=== PATIENT | female | born 1955 | race Caucasian/White ===

== ENCOUNTER → 2018-03-16 09:42 | Outpatient (CLI) | payer OTHER, SELFPAY ==
[2018-03-16 11:09] LABS: Alanine Aminotransferase 27 IU/L (9-52); Albumin 4.5 g/dL (3.5-5.0); Albumin Globulin Ratio 1.6 (1.0-2.8); Alkaline Phosphatase 51 U/L (38-126); Aspartate Aminotransferase 26 IU/L (14-36); BUN Creatinine Ratio 31.7 (6-22); Bilirubin Total 0.4 mg/dL (0.2-1.3); Blood Urea Nitrogen 19 mg/dL (7-17); Calcium 9.3 mg/dL (8.4-10.2); Carbon Dioxide 27 mmol/L (22-32); Chloride 105 mmol/L (98-107); Estimated Glomerular Filt Rate > 60.0 mL/min (>60); Globulin 2.8 g/dL (1.7-4.1); Glucose 92 mg/dL (80-110); HEMOLYSIS < 15 (0-50); Potassium 4.2 mmol/L (3.4-5.1); Sodium 142 mmol/L (137-145); Total Protein 7.3 g/dL (6.3-8.2)
== END ==
PROVIDERS: PCP Family Medicine; Visit Provider Family Medicine
DX: R51 Headache (principal)
CPT/HCPCS: 36415; 80053

== ENCOUNTER → 2019-01-03 10:45 | Outpatient (CLI) | payer OTHER, SELFPAY ==
--- NOTE | 2019-01-03 | DI.RAD.S_ITS ---
PROCEDURE: XR KNEE LT 3V INDICATIONS: Pain in left knee TECHNIQUE: 3 views of the knee were acquired. COMPARISON: None. FINDINGS: Suboptimal lateral view. Bones: No fractures or dislocations. No suspicious bony lesions. Mild joint degeneration Soft tissues: No joint effusion. No suspicious soft tissue calcifications. IMPRESSION: Mild left knee joint degeneration Dictated by: Chris Wells M.D. on 01/03/2019 at 14:48 Approved by: Chris Wells M.D. on 01/03/2019 at 14:49
== END ==
PROVIDERS: PCP Family Medicine; Visit Provider Family Medicine
DX: M25.562 Pain in left knee (principal); M17.12 Unilateral primary osteoarthritis, left knee
CPT/HCPCS: 73562

== ENCOUNTER 2020-08-20 11:15 | Outpatient (RCR) | payer OTHER, SELFPAY ==
--- NOTE | 2020-06-18 12:19 | PT.OIE ---
Current Diagnoses Pelvic muscle wasting (06/18/20) Other female genital prolapse (06/18/20) Visit Care Team Role Provider Type Blaze Garcia MD Primary Care Provider Non-Staff Specialty: Family Practice Address: [place], [address] Email: Other Providers Specialty: Address: Phone: Fax: Email: Kadi Bustillo CNM Attending Provider Non-Staff Referring Provider Specialty: WOOL HAT FORMING MACHINE TENDER Address: [address] [place], [place] [address], [address] Email: Physical Therapy Initial Evaluation PT-OP-A Visit Information Start: 06/18/20 08:57 Freq: Status: Active Protocol: Document 06/18/20 10:44 [facility] (Rec: 06/18/20 10:54 [facility] [id number]) Out-Patient Physical Therapy Visit Information Visit Information Visit Type Initial Evaluation Visit Start Time 10:45 Visit Stop Time 11:30 Total Visit Minutes 45 Visit Number 1 Evaluation Information Evaluation Date 06/18/20 PT-OP-B Current Condition Start: 06/18/20 10:44 Freq: Status: Active Protocol: Document 06/18/20 10:44 [facility] (Rec: 06/18/20 10:54 [facility] [id number]) Current Condition History of Current Condition Onset Date 6 months ago Current Complaints pelvic organ pressure and rectocele History of Current Condition Pt reports she felt like maybe she was having a bladder prolapse problem but with a scan her bowel is protruding into to her vaginal wall. About 6 months ago she felt some pressure in her pelvic floor. She can be constipated but goes every day. Sometimes she has to strain to have a bowel movement, a little less than 1/2 the time. 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 Jeanne stopped her exercise program about 6 months ago and this is when her symptoms developed. Treatment Goals Patient/Caregiver Goals Steffany's goals include improving her pelvic floor strength so that she can prevent further prolapse and working on reducing the symptoms from her prolapse Prior Functional Status Baseline Function- ADL's Independent Baseline Function- Mobility Independent Current Functional Impairments (Reported) Functional Limitations- Mobility/Gait increased c/o pelvic pressure with activities that require standing all day or after long walks. PT-OP-C Subjective Start: 06/18/20 08:57 Freq: Status: Active Protocol: Document 06/18/20 10:30 [facility] (Rec: 06/23/20 12:19 [facility] [email or web address]) OP-PT Pain Assessment Pain Assessment Grid Paper Pain Assessment Grid Completed Yes Location pelvic floor Pain Location Details pelvic floor Intensity 1 Scale Used Numeric (0 - 10) Description Pressure PT-OP-I Pelvic Floor Start: 06/18/20 08:57 Freq: Status: Active Protocol: Document 06/18/20 10:30 [facility] (Rec: 06/23/20 12:04 [facility] [email or web address]) Pelvic Floor Assessment Urine Pelvic Floor Surgery No Urinary Symptoms Falling Out Feeling/Heavy Other Urinary Symptoms after standing for long periods Bowel Other Bowel Symptoms rectocele Bowel Movement Frequency daily Pelvic Clock Pelvic Clock 12-3 Atrophy Pelvic Clock 3-6 Atrophy Pelvic Clock 6-9 Atrophy Pelvic Clock 9-12 Atrophy Prolapse Rectocele Grade 2 Contraction Ability Voluntary Contraction Weak Voluntary Relaxation Weak Manual Muscle Testing Left 3 Manual Muscle Testing Right 2 Manual Muscle Testing Anterior 2 Manual Muscle Testing Posterior 2 Muscle Endurance (Seconds) 5 PT-OP-J Posture/Palpation/Skin Start: 06/18/20 08:57 Freq: Status: Active Protocol: Document 06/18/20 10:30 [facility] (Rec: 06/23/20 12:04 [facility] [email or web address]) Palpation Assessment Location levator ani Palpation Location levator ani left side Palpation Findings Soft Tissue Tightness,Muscle Guarding Palpation Details left side of the levator ani guarded and tight PT-OP-M Strength Start: 06/18/20 08:57 Freq: Status: Active Protocol: Document 06/18/20 10:30 [facility] (Rec: 06/23/20 12:18 [facility] [email or web address]) Trunk Strength Trunk Manual Muscle Testing Core Stabilization Weakness of the lower transverse abominal musculature, difficulty recruiting the transverse abdominals without upper abdominal muscle substition PT-OP-Q Treatments Start: 06/18/20 08:57 Freq: Status: Active Protocol: Document 06/18/20 17:58 [facility] (Rec: 06/18/20 18:01 [facility] [id number]) Therapeutic Exercises Supine Exercises rollouts with theraband Supine Exercise Name rollouts with theraband Side bilateral Resistance level 2 theraband Reps/Minutes 3 x 10 reps pelvic floor long holds Supine Exercise Name pelvic floor long holds hold x 10 seconds and relax x 10 seconds Side bilateral Reps/Minutes 1-2 sets of 10 reps PT-OP-T Assessment and Plan Start: 06/18/20 08:57 Freq: Status: Active Protocol: Document 06/18/20 10:30 [facility] (Rec: 06/23/20 12:04 [facility] [email or web address]) Physical Therapy Assessment Rehab Potential Rehabilitation Potential Excellent Evaluation Complexity Number of Personal Factors/Comorbidities 0 Number of Body Systems Impaired 1-2 Clinical Presentation at Evaluation Stable Impairments Impairments Activity Tolerance,Soft Tissue Mobility,Strength Other Impairments rectocele with increase pelvic pressure Goals Weakness of the lower abdominal wall Impairment Weakness of the lower abdominal wall Despatch Clerk Goal (LTG) Steffany is able to tolerate lower abdominal stabilization exercises to improve support to her pelvis. She is able to facilitate a abdominal and pelvic floor contraction prior to lifting to decrease strain on her pelvic organs LTG Duration 8 weeks Two Impairment c/o increased pelvic pressure after standing for long durations pain 1/10 Despatch Clerk Goal (LTG) Steffany is able to increase the strength of her pelvic floor to reduce pelvic organ prolapse and pressure she feels with standing. She is able to continue her work and standing without symptoms of pelvic pressure or heaviness LTG Duration 8 weeks One Impairment Pelvic floor weakness with rectocele and pelvic pressure Short Term Goal (STG) Steffany is educated on pelvic floor facilitation and is able to sustain a pelvic floor contraction for 10 seconds in supine STG Duration 4 weeks Despatch Clerk Goal (LTG) Steffany is able to increase her pelvic floor strength to 3/5 or better for improved support of her pelvic organs LTG Duration 8 weeks Assessment Summary Assessment Steffany is a 65 year old female who presents to physical therapy today with symptoms of pelvic organ prolapse, specifically a rectocele. She notes that symptoms began approximately 6 months ago. Steffany had a exercise program she was doing but with the covid 19 pandemic she stopped this program and felt she started getting weaker. She then started feeling symptoms of pelvic pressure. 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 Her symptoms of pelvic pressure are worse after a long day of being on her feet or walking. With examination today there is a grade 2-3 rectocele felt. She is weak in all aspects of the pelvic clock with MMT of 2/5 anterior, right lateral wall, and posterior loomis. She tests 3/5 MMT on the left lateral wall and there is guarding present on the left. Steffany demonstrates difficulty with sustaining a pelvic floor contraction. She presents with general core weakness. Treatment will include a pelvic floor stabilization program including endurance training of the pelvic floor. EMG biofeedback will be used for improved awareness of the pelvic floor muscles. Treatment will also include lower abdominal strengthening and education on positions that can decompress her pelvis . Physical Therapy Plan Frequency and Duration Frequency of Treatment 1x/Week Duration of Treatment 8 Plan of Care Start Date 06/18/20 Plan of Care End Date 08/13/20 Therapeutic Interventions Therapeutic Interventions Home Exercise Program,Manual Therapy,Neuromuscular Re- education,Patient/Caregiver Education,Self-Care/Home Management,Soft Tissue Mobilization,Therapeutic Exercises Modalities Biofeedback Next Visit Focus/Plan Next Note Type Treatment Note Next Visit Plan Begin EMG biofeedback for neuro awareness of pelvic floor contraction, endurance training for the pelvic floo, begin transverse abdominal stabilization exercises.
--- NOTE | 2020-06-18 12:20 | PT.OPPOC ---
Physical, Occupational & Speech Therapy At [facility] Current Diagnoses Pelvic muscle wasting (06/18/20) Other female genital prolapse (06/18/20) Visit Care Team Role Provider Type Blaze Garcia MD Primary Care Provider Non-Staff Specialty: Family Practice Address: [place], [address] Email: Other Providers Specialty: Address: Phone: Fax: Email: Kadi Bustillo CNM Attending Provider Non-Staff Referring Provider Specialty: SOFTWARE DEVELOPMENT ADVISOR Address: [address] [place] [address], [id number] Email: Plan Of Care PT-OP-T Assessment and Plan Start: 06/18/20 08:57 Freq: Status: Active Protocol: Document 06/18/20 10:30 [facility] (Rec: 06/23/20 12:04 [facility] [email or web address]) Physical Therapy Assessment Rehab Potential Rehabilitation Potential Excellent Evaluation Complexity Number of Personal Factors/Comorbidities 0 Number of Body Systems Impaired 1-2 Clinical Presentation at Evaluation Stable Impairments Impairments Activity Tolerance,Soft Tissue Mobility,Strength Other Impairments rectocele with increase pelvic pressure Goals Weakness of the lower abdominal wall Impairment Weakness of the lower abdominal wall Penitentiary Goal (LTG) Steffany is able to tolerate lower abdominal stabilization exercises to improve support to her pelvis. She is able to facilitate a abdominal and pelvic floor contraction prior to lifting to decrease strain on her pelvic organs LTG Duration 8 weeks Two Impairment c/o increased pelvic pressure after standing for long durations pain 1/10 Penitentiary Goal (LTG) Steffany is able to increase the strength of her pelvic floor to reduce pelvic organ prolapse and pressure she feels with standing. She is able to continue her work and standing without symptoms of pelvic pressure or heaviness LTG Duration 8 weeks One Impairment Pelvic floor weakness with rectocele and pelvic pressure Short Term Goal (STG) Steffany is educated on pelvic floor facilitation and is able to sustain a pelvic floor contraction for 10 seconds in supine STG Duration 4 weeks Purchasing Administrator Goal (LTG) Steffany is able to increase her pelvic floor strength to 3/5 or better for improved support of her pelvic organs LTG Duration 8 weeks Assessment Summary Assessment Steffany is a 65 year old female who presents to physical therapy today with symptoms of pelvic organ prolapse, specifically a rectocele. She notes that symptoms began approximately 6 months ago. Steffany had a exercise program she was doing but with the covid 19 pandemic she stopped this program and felt she started getting weaker. She then started feeling symptoms of pelvic pressure. 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 Her symptoms of pelvic pressure are worse after a long day of being on her feet or walking. With examination today there is a grade 2-3 rectocele felt. She is weak in all aspects of the pelvic clock with MMT of 2/5 anterior, right lateral wall, and posterior loomis. She tests 3/5 MMT on the left lateral wall and there is guarding present on the left. Steffany demonstrates difficulty with sustaining a pelvic floor contraction. She presents with general core weakness. Treatment will include a pelvic floor stabilization program including endurance training of the pelvic floor. EMG biofeedback will be used for improved awareness of the pelvic floor muscles. Treatment will also include lower abdominal strengthening and education on positions that can decompress her pelvis . Physical Therapy Plan Frequency and Duration Frequency of Treatment 1x/Week Duration of Treatment 8 Plan of Care Start Date 06/18/20 Plan of Care End Date 08/13/20 Therapeutic Interventions Therapeutic Interventions Home Exercise Program,Manual Therapy,Neuromuscular Re- education,Patient/Caregiver Education,Self-Care/Home Management,Soft Tissue Mobilization,Therapeutic Exercises Modalities Biofeedback Next Visit Focus/Plan Next Note Type Treatment Note Next Visit Plan Begin EMG biofeedback for neuro awareness of pelvic floor contraction, endurance training for the pelvic floor, begin transverse abdominal stabilization exercises. Plan of Care Dates Plan of Care Start Date 06/18/20 Plan of Care End Date 08/13/20 Electronically Signed by: Barbara Yousif, PT 06/23/20 [id number] Please Sign and Return: I have reviewed this Plan of Care and certify that the skilled therapy services above are required to meet the patient?s needs. Physician Signature Date Printed Name and Credentials Clinical Instructor Signature Printed Name and Credentials
--- NOTE | 2020-06-26 14:29 | PT.OTN ---
Current Diagnoses Pelvic muscle wasting (06/26/20) Other female genital prolapse (06/26/20) Physical Therapy Treatment Note PT-OP-A Visit Information Start: 06/18/20 08:57 Freq: Status: Active Protocol: Document 06/26/20 10:31 [facility] (Rec: 06/26/20 10:56 [facility] [id number]) Out-Patient Physical Therapy Visit Information Visit Information Visit Type Treatment Note Visit Start Time 10:50 Visit Stop Time 11:15 Total Visit Minutes 25 Visit Number 2 PT-OP-B Current Condition Start: 06/18/20 10:44 Freq: Status: Active Protocol: Document 06/18/20 10:44 [facility] (Rec: 06/18/20 10:54 [facility] [id number]) Current Condition History of Current Condition Onset Date 6 months ago Current Complaints pelvic organ pressure and rectocele History of Current Condition Pt reports she felt like maybe she was having a bladder prolapse problem but with a scan her bowel is protruding into to her vaginal wall. About 6 months ago she felt some pressure in her pelvic floor. She can be constipated but goes every day. Sometimes she has to strain to have a bowel movement, a little less than 1/2 the time. 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 Jeanne stopped her exercise program about 6 months ago and this is when her symptoms developed. Treatment Goals Patient/Caregiver Goals Steffany's goals include improving her pelvic josh strength so that she can prevent further prolapse and working on reducing the symptoms from her prolapse Prior Functional Status Baseline Function- ADL's Independent Baseline Function- Mobility Independent Current Functional Impairments (Reported) Functional Limitations- Mobility/Gait increased c/o pelvic pressure with activities that require standing all day or after long walks. PT-OP-C Subjective Start: 06/18/20 08:57 Freq: Status: Active Protocol: Document 06/26/20 10:31 [facility] (Rec: 06/26/20 10:56 [facility] [id number]) OP-PT Subjective Patient Comments Patient Comments [place]. She has been working on her exercises at home. Patient Reported Progress Same PT-OP-I Pelvic Floor Start: 06/18/20 08:57 Freq: Status: Active Protocol: Document 06/18/20 10:30 [facility] (Rec: 06/23/20 12:04 [facility] [email or web address]) Pelvic Floor Assessment Urine Pelvic Floor Surgery No Urinary Symptoms Falling Out Feeling/Heavy Other Urinary Symptoms after standing for long periods Bowel Other Bowel Symptoms rectocele Bowel Movement Frequency daily Pelvic Clock Pelvic Clock 12-3 Atrophy Pelvic Clock 3-6 Atrophy Pelvic Clock 6-9 Atrophy Pelvic Clock 9-12 Atrophy Prolapse Rectocele Grade 2 Contraction Ability Voluntary Contraction Weak Voluntary Relaxation Weak Manual Muscle Testing Left 3 Manual Muscle Testing Right 2 Manual Muscle Testing Anterior 2 Manual Muscle Testing Posterior 2 Muscle Endurance (Seconds) 5 PT-OP-J Posture/Palpation/Skin Start: 06/18/20 08:57 Freq: Status: Active Protocol: Document 06/18/20 10:30 [facility] (Rec: 06/23/20 12:04 [facility] [email or web address]) Palpation Assessment Location levator ani Palpation Location levator ani left side Palpation Findings Soft Tissue Tightness,Muscle Guarding Palpation Details left side of the levator ani guarded and tight PT-OP-M Strength Start: 06/18/20 08:57 Freq: Status: Active Protocol: Document 06/18/20 10:30 [facility] (Rec: 06/23/20 12:18 [facility] [email or web address]) Trunk Strength Trunk Manual Muscle Testing Core Stabilization Weakness of the lower transverse abominal musculature, difficulty recruiting the transverse abdominals without upper abdominal muscle substition PT-OP-Q Treatments Start: 06/18/20 08:57 Freq: Status: Active Protocol: Document 06/26/20 14:23 [facility] (Rec: 06/26/20 14:28 [facility] [email or web address]) Neuro Re-Education Treatment Other Activities EMG biofeedback/Neuro re-education Details EMG biofeedback and Neuro re- education for the pelvic floor Comments EMG biofeedback was used today to assist with neuro re- education of the pelvic floor. Steffany was educated in both long holds and quick flicks of the pelvic floor as well as resting tone assessment. Her average wasd 11.5 and max wasd 22.4 Self-Care/Home Management Treatment Education Patient Education Home Exercise Program Other Education elevating the pelvis for decompression PT-OP-T Assessment and Plan Start: 06/18/20 08:57 Freq: Status: Active Protocol: Document 06/26/20 14:23 [facility] (Rec: 06/26/20 14:28 [facility] [email or web address]) Physical Therapy Assessment Assessment Summary Assessment Treatment was [place]. We started EMG biofeedback today for long holds and quick contractions of the pelvic floor. Steffany tolerated this well. She may be a candidate as well for NMES for improved sensation of the pelvic floor. We also reviewed elevating her pelvis for decreased compression to the pelvic organs Physical Therapy Plan Frequency and Duration Frequency of Treatment 1x/Week Duration of Treatment 8 Plan of Care Start Date 06/18/20 Plan of Care End Date 08/13/20 Therapeutic Interventions Therapeutic Interventions Home Exercise Program,Manual Therapy,Neuromuscular Re- education,Patient/Caregiver Education,Self-Care/Home Management,Soft Tissue Mobilization,Therapeutic Exercises Modalities Biofeedback Next Visit Focus/Plan Next Note Type Treatment Note Next Visit Plan progress pelvic floor strengthening, begin lower abdominal stabilization and visceral release over the left side abdominal wall, descending colon, postural education and foam roll
--- NOTE | 2020-07-02 18:07 | PT.OTN ---
Current Diagnoses Pelvic muscle wasting (07/02/20) Other female genital prolapse (07/02/20) Physical Therapy Treatment Note PT-OP-A Visit Information Start: 06/18/20 08:57 Freq: Status: Active Protocol: Document 07/02/20 17:58 [facility] (Rec: 07/02/20 18:07 [facility] [id number]) Out-Patient Physical Therapy Visit Information Visit Information Visit Type Treatment Note Visit Start Time 10:40 Visit Stop Time 11:20 Total Visit Minutes 40 Visit Number 3 PT-OP-B Current Condition Start: 06/18/20 10:44 Freq: Status: Active Protocol: Document 06/18/20 10:44 [facility] (Rec: 06/18/20 10:54 [facility] [id number]) Current Condition History of Current Condition Onset Date 6 months ago Current Complaints pelvic organ pressure and rectocele History of Current Condition Pt reports she felt like maybe she was having a bladder prolapse problem but with a scan her bowel is protruding into to her vaginal wall. About 6 months ago she felt some pressure in her pelvic floor. She can be constipated but goes every day. Sometimes she has to strain to have a bowel movement, a little less than 1/2 the time. 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 Jeanne stopped her exercise program about 6 months ago and this is when her symptoms developed. Treatment Goals Patient/Caregiver Goals Steffany's goals include improving her pelvic josh strength so that she can prevent further prolapse and working on reducing the symptoms from her prolapse Prior Functional Status Baseline Function- ADL's Independent Baseline Function- Mobility Independent Current Functional Impairments (Reported) Functional Limitations- Mobility/Gait increased c/o pelvic pressure with activities that require standing all day or after long walks. PT-OP-C Subjective Start: 06/18/20 08:57 Freq: Status: Active Protocol: Document 07/02/20 17:58 [facility] (Rec: 07/02/20 18:07 [facility] [id number]) OP-PT Subjective Patient Comments Patient Comments Pt reports she has been working on her exercises at home. She can tell by the end of the day she has pressure from the rectal prolapse. PT-OP-I Pelvic Floor Start: 06/18/20 08:57 Freq: Status: Active Protocol: Document 06/18/20 10:30 [facility] (Rec: 06/23/20 12:04 [facility] [email or web address]) Pelvic Floor Assessment Urine Pelvic Floor Surgery No Urinary Symptoms Falling Out Feeling/Heavy Other Urinary Symptoms after standing for long periods Bowel Other Bowel Symptoms rectocele Bowel Movement Frequency daily Pelvic Clock Pelvic Clock 12-3 Atrophy Pelvic Clock 3-6 Atrophy Pelvic Clock 6-9 Atrophy Pelvic Clock 9-12 Atrophy Prolapse Rectocele Grade 2 Contraction Ability Voluntary Contraction Weak Voluntary Relaxation Weak Manual Muscle Testing Left 3 Manual Muscle Testing Right 2 Manual Muscle Testing Anterior 2 Manual Muscle Testing Posterior 2 Muscle Endurance (Seconds) 5 PT-OP-J Posture/Palpation/Skin Start: 06/18/20 08:57 Freq: Status: Active Protocol: Document 06/18/20 10:30 [facility] (Rec: 06/23/20 12:04 [facility] [email or web address]) Palpation Assessment Location levator ani Palpation Location levator ani left side Palpation Findings Soft Tissue Tightness,Muscle Guarding Palpation Details left side of the levator ani guarded and tight PT-OP-M Strength Start: 06/18/20 08:57 Freq: Status: Active Protocol: Document 06/18/20 10:30 [facility] (Rec: 06/23/20 12:18 [facility] [email or web address]) Trunk Strength Trunk Manual Muscle Testing Core Stabilization Weakness of the lower transverse abominal musculature, difficulty recruiting the transverse abdominals without upper abdominal muscle substition PT-OP-Q Treatments Start: 06/18/20 08:57 Freq: Status: Active Protocol: Document 07/02/20 17:58 [facility] (Rec: 07/02/20 18:07 [facility] [id number]) Therapeutic Exercises Supine Exercises templates for coordination and eccentric control Supine Exercise Name teplates for coordianation and eccentric control pelvis elevated with legs up the wall Supine Exercise Name pelvic elevated with legs up the wall Comments to do at the end of hte day when having pelvic pressure ball squeeze with pelvic floor contractions Reps/Minutes x 10 reps quick pelvic floor contactions Supine Exercise Name quick pelvic floor contractions Reps/Minutes 2 seconds on 2 seconds off x 10 reps pelvic floor long holds Supine Exercise Name pelvic floor long holds hold x 10 seconds and relax x 10 seconds Side bilateral Reps/Minutes 1-2 sets of 10 reps Sidelying Exercises clam shells Reps/Minutes x 10 reps PT-OP-T Assessment and Plan Start: 11/03/20 08:57 Freq: Status: Active Protocol: Document 07/02/20 17:58 [facility] (Rec: 07/02/20 18:07 [facility] [id number]) Physical Therapy Assessment Assessment Summary Assessment 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 We talked about going through all her mat exercises and making sure she isn't bearning down causing downward pressure with any of them. She still has difficulty with endurance holds. I added in ball squeeze with pelvic floor contraction to help with improved recruitment of the pelvic floor Physical Therapy Plan Frequency and Duration Frequency of Treatment 1x/Week Duration of Treatment 8 Plan of Care Start Date 06/18/20 Plan of Care End Date 08/13/20 Next Visit Focus/Plan Next Note Type Treatment Note Next Visit Plan review pilates exercises, lower abdominal stabilization , pelvic floor endurance training
--- NOTE | 2020-07-18 10:57 | PT.OTN ---
Current Diagnoses Pelvic muscle wasting (07/17/20) Other female genital prolapse (07/17/20) Physical Therapy Treatment Note PT-OP-A Visit Information Start: 06/18/20 08:57 Freq: Status: Active Protocol: Document 07/17/20 10:40 [facility] (Rec: 07/17/20 10:48 [facility] [id number]) Out-Patient Physical Therapy Visit Information Visit Information Visit Type Treatment Note Visit Start Time 10:40 Visit Stop Time 11:20 Total Visit Minutes 40 Visit Number 4 PT-OP-B Current Condition Start: 06/18/20 10:44 Freq: Status: Active Protocol: Document 06/18/20 10:44 [facility] (Rec: 06/18/20 10:54 [facility] [id number]) Current Condition History of Current Condition Onset Date 6 months ago Current Complaints pelvic organ pressure and rectocele History of Current Condition Pt reports she felt like maybe she was having a bladder prolapse problem but with a scan her bowel is protruding into to her vaginal wall. About 6 months ago she felt some pressure in her pelvic floor. She can be constipated but goes every day. Sometimes she has to strain to have a bowel movement, a little less than 1/2 the time. 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 Jeanne stopped her exercise program about 6 months ago and this is when her symptoms developed. Treatment Goals Patient/Caregiver Goals Steffany's goals include improving her pelvic josh strength so that she can prevent further prolapse and working on reducing the symptoms from her prolapse Prior Functional Status Baseline Function- ADL's Independent Baseline Function- Mobility Independent Current Functional Impairments (Reported) Functional Limitations- Mobility/Gait increased c/o pelvic pressure with activities that require standing all day or after long walks. PT-OP-C Subjective Start: 06/18/20 08:57 Freq: Status: Active Protocol: Document 07/17/20 10:40 [facility] (Rec: 07/17/20 10:48 [facility] [id number]) OP-PT Subjective Patient Comments Patient Comments Prolapse symptoms depend on the day. Trying to do her exercises. PT-OP-I Pelvic Floor Start: 06/18/20 08:57 Freq: Status: Active Protocol: Document 06/18/20 10:30 [facility] (Rec: 06/23/20 12:04 [facility] [email or web address]) Pelvic Floor Assessment Urine Pelvic Floor Surgery No Urinary Symptoms Falling Out Feeling/Heavy Other Urinary Symptoms after standing for long periods Bowel Other Bowel Symptoms rectocele Bowel Movement Frequency daily Pelvic Clock Pelvic Clock 12-3 Atrophy Pelvic Clock 3-6 Atrophy Pelvic Clock 6-9 Atrophy Pelvic Clock 9-12 Atrophy Prolapse Rectocele Grade 2 Contraction Ability Voluntary Contraction Weak Voluntary Relaxation Weak Manual Muscle Testing Left 3 Manual Muscle Testing Right 2 Manual Muscle Testing Anterior 2 Manual Muscle Testing Posterior 2 Muscle Endurance (Seconds) 5 PT-OP-J Posture/Palpation/Skin Start: 06/18/20 08:57 Freq: Status: Active Protocol: Document 06/18/20 10:30 [facility] (Rec: 06/23/20 12:04 [facility] [email or web address]) Palpation Assessment Location levator ani Palpation Location levator ani left side Palpation Findings Soft Tissue Tightness,Muscle Guarding Palpation Details left side of the levator ani guarded and tight PT-OP-M Strength Start: 06/18/20 08:57 Freq: Status: Active Protocol: Document 06/18/20 10:30 [facility] (Rec: 06/23/20 12:18 [facility] [email or web address]) Trunk Strength Trunk Manual Muscle Testing Core Stabilization Weakness of the lower transverse abominal musculature, difficulty recruiting the transverse abdominals without upper abdominal muscle substition PT-OP-Q Treatments Start: 06/18/20 08:57 Freq: Status: Active Protocol: Document 07/17/20 10:30 [facility] (Rec: 07/18/20 10:56 [facility] [id number]) Therapeutic Exercises Supine Exercises templates for coordination and eccentric control Supine Exercise Name templates for coordianation and eccentric control Comments working on coordination of the pelvic floor quick pelvic floor contactions Supine Exercise Name quick pelvic floor contractions Reps/Minutes 2 seconds on 2 seconds off x 10 reps pelvic floor long holds Supine Exercise Name pelvic floor long holds hold x 10 seconds and relax x 10 seconds Side bilateral Reps/Minutes 1-2 sets of 10 reps Self-Care/Home Management Treatment Education Patient Education Home Exercise Program Other Education discussed pressure systems for when Steffany is doing pilates to avoid downward pressure on the pelvic floor. PT-OP-T Assessment and Plan Start: 06/18/20 08:57 Freq: Status: Active Protocol: Document 07/17/20 10:30 [facility] (Rec: 07/18/20 10:56 [facility] [id number]) Physical Therapy Assessment Assessment Summary Assessment average tone on EMG biofeedback today is 18.1 uv with max of 30.7 uv. This is good progress as compared to last visit. Steffany is having a difficult time finding time for her exercises. She also has a elevated resting tone but notes she is told often with massages that she tends to hold tension and it is difficult for her to relax. Physical Therapy Plan Frequency and Duration Frequency of Treatment 1x/Week Duration of Treatment 8 Plan of Care Start Date 06/18/20 Plan of Care End Date 08/13/20 Therapeutic Interventions Therapeutic Interventions Home Exercise Program,Manual Therapy,Neuromuscular Re- education,Patient/Caregiver Education,Self-Care/Home Management,Soft Tissue Mobilization,Therapeutic Exercises Modalities Biofeedback Next Visit Focus/Plan Next Note Type Treatment Note Next Visit Plan continue progressing pelvic floor strength, review mechanics with pilates exercises.
--- NOTE | 2020-08-20 17:35 | PT.OTN ---
Current Diagnoses Pelvic muscle wasting (08/20/20) Other female genital prolapse (08/20/20) Physical Therapy Treatment Note PT-OP-A Visit Information Start: 06/18/20 08:57 Freq: Status: Active Protocol: Document 08/20/20 11:25 [facility] (Rec: 08/20/20 11:31 [facility] [id number]) Out-Patient Physical Therapy Visit Information Visit Information Visit Type Treatment Note Visit Start Time 11:20 Visit Stop Time 11:45 Total Visit Minutes 25 Visit Number 5 PT-OP-B Current Condition Start: 06/18/20 10:44 Freq: Status: Active Protocol: Document 06/18/20 10:44 [facility] (Rec: 06/18/20 10:54 [facility] [id number]) Current Condition History of Current Condition Onset Date 6 months ago Current Complaints pelvic organ pressure and rectocele History of Current Condition Pt reports she felt like maybe she was having a bladder prolapse problem but with a scan her bowel is protruding into to her vaginal wall. About 6 months ago she felt some pressure in her pelvic floor. She can be constipated but goes every day. Sometimes she has to strain to have a bowel movement, a little less than 1/2 the time. 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 Jeanne stopped her exercise program about 6 months ago and this is when her symptoms developed. Treatment Goals Patient/Caregiver Goals Steffany's goals include improving her pelvic josh strength so that she can prevent further prolapse and working on reducing the symptoms from her prolapse Prior Functional Status Baseline Function- ADL's Independent Baseline Function- Mobility Independent Current Functional Impairments (Reported) Functional Limitations- Mobility/Gait increased c/o pelvic pressure with activities that require standing all day or after long walks. PT-OP-C Subjective Start: 06/18/20 08:57 Freq: Status: Active Protocol: Document 08/20/20 11:25 [facility] (Rec: 08/20/20 11:31 [facility] [id number]) OP-PT Subjective Patient Comments Patient Comments She notes she doesnt feel like her prolase is as much as it used to be. If she does feel it that is when she is on her feet all day. PT-OP-I Pelvic Floor Start: 06/18/20 08:57 Freq: Status: Active Protocol: Document 06/18/20 10:30 [facility] (Rec: 06/23/20 12:04 [facility] [email or web address]) Pelvic Floor Assessment Urine Pelvic Floor Surgery No Urinary Symptoms Falling Out Feeling/Heavy Other Urinary Symptoms after standing for long periods Bowel Other Bowel Symptoms rectocele Bowel Movement Frequency daily Pelvic Clock Pelvic Clock 12-3 Atrophy Pelvic Clock 3-6 Atrophy Pelvic Clock 6-9 Atrophy Pelvic Clock 9-12 Atrophy Prolapse Rectocele Grade 2 Contraction Ability Voluntary Contraction Weak Voluntary Relaxation Weak Manual Muscle Testing Left 3 Manual Muscle Testing Right 2 Manual Muscle Testing Anterior 2 Manual Muscle Testing Posterior 2 Muscle Endurance (Seconds) 5 PT-OP-J Posture/Palpation/Skin Start: 06/18/20 08:57 Freq: Status: Active Protocol: Document 06/18/20 10:30 [facility] (Rec: 06/23/20 12:04 [facility] [email or web address]) Palpation Assessment Location levator ani Palpation Location levator ani left side Palpation Findings Soft Tissue Tightness,Muscle Guarding Palpation Details left side of the levator ani guarded and tight PT-OP-M Strength Start: 06/18/20 08:57 Freq: Status: Active Protocol: Document 06/18/20 10:30 [facility] (Rec: 06/23/20 12:18 [facility] [email or web address]) Trunk Strength Trunk Manual Muscle Testing Core Stabilization Weakness of the lower transverse abominal musculature, difficulty recruiting the transverse abdominals without upper abdominal muscle substition PT-OP-Q Treatments Start: 06/18/20 08:57 Freq: Status: Active Protocol: Document 08/20/20 17:34 [facility] (Rec: 08/20/20 17:35 [facility] [email or web address]) Therapeutic Exercises Supine Exercises templates for coordination and eccentric control Supine Exercise Name templates for coordianation and eccentric control Comments working on coordination of the pelvic floor quick pelvic floor contactions Supine Exercise Name quick pelvic floor contractions Reps/Minutes 2 seconds on 2 seconds off x 10 reps pelvic floor long holds Supine Exercise Name pelvic floor long holds hold x 10 seconds and relax x 10 seconds Side bilateral Reps/Minutes 1-2 sets of 10 reps PT-OP-T Assessment and Plan Start: 06/18/20 08:57 Freq: Status: Active Protocol: Document 08/20/20 17:33 [facility] (Rec: 08/20/20 17:34 [facility] [id number]) Physical Therapy Assessment Progress Towards Goals Progress Towards Goals Progressing Toward Goals Assessment Summary Assessment Steffany has made good progress overall with her strengthening . She notes overall decrased pressure from the prolapse and feels independent with her HEP. She will be discharged at this time to a independent [facility] Physical Therapy Plan Discharge Physical Therapy Discharge Reasons No Longer Attending PT
--- NOTE | 2020-11-27 10:14 | PT.OPDS ---
Current Diagnoses Pelvic muscle wasting (08/20/20) Other female genital prolapse (08/20/20) Visit Care Team Role Provider Type Blaze Garcia MD Primary Care Provider Non-Staff Specialty: Family Practice Address: [place], [address] Email: Other Providers Specialty: Address: Phone: Fax: Email: Kadi Bustillo CNM Attending Provider Non-Staff Referring Provider Specialty: SALES SU[employer] REPRESENTATIVE Address: [address] [place] [address], [id number] Email: Visit Number Visit Number 5 Discharge Summary PT-OP-B Current Condition Start: 06/18/20 10:44 Freq: Status: Active Protocol: Document 06/18/20 10:44 [facility] (Rec: 06/18/20 10:54 [facility] [id number]) Current Condition History of Current Condition Onset Date 6 months ago Current Complaints pelvic organ pressure and rectocele History of Current Condition Pt reports she felt like maybe she was having a bladder prolapse problem but with a scan her bowel is protruding into to her vaginal wall. About 6 months ago she felt some pressure in her pelvic floor. She can be constipated but goes every day. Sometimes she has to strain to have a bowel movement, a little less than 1/2 the time. 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 Jeanne stopped her exercise program about 6 months ago and this is when her symptoms developed. Treatment Goals Patient/Caregiver Goals Steffany's goals include improving her pelvic josh strength so that she can prevent further prolapse and working on reducing the symptoms from her prolapse Prior Functional Status Baseline Function- ADL's Independent Baseline Function- Mobility Independent Current Functional Impairments (Reported) Functional Limitations- Mobility/Gait increased c/o pelvic pressure with activities that require standing all day or after long walks. PT-OP-C Subjective Start: 06/18/20 08:57 Freq: Status: Active Protocol: Document 08/20/20 11:25 [facility] (Rec: 08/20/20 11:31 [facility] [id number]) OP-PT Subjective Patient Comments Patient Comments She notes she doesnt feel like her prolase is as much as it used to be. If she does feel it that is when she is on her feet all day. PT-OP-I Pelvic Floor Start: 06/18/20 08:57 Freq: Status: Active Protocol: Document 06/18/20 10:30 [facility] (Rec: 06/23/20 12:04 [facility] [email or web address]) Pelvic Floor Assessment Urine Pelvic Floor Surgery No Urinary Symptoms Falling Out Feeling/Heavy Other Urinary Symptoms after standing for long periods Bowel Other Bowel Symptoms rectocele Bowel Movement Frequency daily Pelvic Clock Pelvic Clock 12-3 Atrophy Pelvic Clock 3-6 Atrophy Pelvic Clock 6-9 Atrophy Pelvic Clock 9-12 Atrophy Prolapse Rectocele Grade 2 Contraction Ability Voluntary Contraction Weak Voluntary Relaxation Weak Manual Muscle Testing Left 3 Manual Muscle Testing Right 2 Manual Muscle Testing Anterior 2 Manual Muscle Testing Posterior 2 Muscle Endurance (Seconds) 5 PT-OP-J Posture/Palpation/Skin Start: 06/18/20 08:57 Freq: Status: Active Protocol: Document 06/18/20 10:30 [facility] (Rec: 06/23/20 12:04 [facility] [email or web address]) Palpation Assessment Location levator ani Palpation Location levator ani left side Palpation Findings Soft Tissue Tightness,Muscle Guarding Palpation Details left side of the levator ani guarded and tight PT-OP-M Strength Start: 06/18/20 08:57 Freq: Status: Active Protocol: Document 06/18/20 10:30 [facility] (Rec: 06/23/20 12:18 [facility] [email or web address]) Trunk Strength Trunk Manual Muscle Testing Core Stabilization Weakness of the lower transverse abdominal musculature, difficulty recruiting the transverse abdominals without upper abdominal muscle substitution PT-OP-T Assessment and Plan Start: 06/18/20 08:57 Freq: Status: Active Protocol: Document 08/20/20 17:33 [facility] (Rec: 08/20/20 17:34 [facility] [email or web address]) Physical Therapy Assessment Progress Towards Goals Progress Towards Goals Progressing Toward Goals Assessment Summary Assessment Steffany has made good progress overall with her strengthening . She notes overall decrased pressure from the prolapse and feels independent with her HEP. She will be discharged at this time to a independent [facility] Physical Therapy Plan Discharge Physical Therapy Discharge Reasons No Longer Attending PT
== END 2020-12-02 10:48 ==
LOC: PHYS 11:15
PROVIDERS: PCP Family Medicine; Referring Provider Advanced Practice Midwife; Visit Provider Advanced Practice Midwife
DX: N81.89 Other female genital prolapse (principal); N81.84 Pelvic muscle wasting
CPT/HCPCS: 97110; 97112; 97161; 97535

== ENCOUNTER → 2021-11-12 08:36 | Outpatient (CLI) | payer OTHER, SELFPAY ==
[2021-11-12 18:58] LABS: Add Manual Diff / Slide Review NO; Basophils Absolute Auto 100 /uL (0-100); Eosinophils Absolute Auto 100 /uL (0-450); Eosinophils Percent Auto 1.1 % (2-4); Hemoglobin 12.1 g/dL (12.0-16.0); Lymphocytes Absolute Auto 2200 /uL (1100-4500); Lymphocytes Percent Auto 39.3 % (25-40); Mean Corpuscular HGB Conc 33.7 % (30-36); Mean Corpuscular Hemoglobin 28.1 PG (26-34); Mean Corpuscular Volume 83.2 fL (80-100); Monocytes Absolute Auto 400 /uL (0-900); Monocytes Percent Auto 7.4 % (3-14); Neutrophils Absolute Auto 2800 /uL (1500-7000); Neutrophils Percent Auto 51.2 % (50-75); Platelet Count 211 X10^3/uL (150-400); Red Blood Cell Count 4.33 X10^6/uL (4.0-5.2); Red Cell Distribution Width 14.1 % (11.6-14.8); White Blood Cell Count 5.5 X10^3/uL (4.5-11.0)
[2021-11-12 19:10] LABS: Alanine Aminotransferase 53 IU/L (<35); Albumin 4.4 g/dL (3.5-5.0); Albumin Globulin Ratio 1.7 (1.0-2.8); Alkaline Phosphatase 52 U/L (38-126); Aspartate Aminotransferase 33 IU/L (14-36); BUN Creatinine Ratio 34.4 (6-22); Bilirubin Total 0.7 mg/dL (0.2-1.3); Blood Urea Nitrogen 22 mg/dL (7-17); Calcium 9.4 mg/dL (8.4-10.2); Carbon Dioxide 28 mmol/L (22-32); Chloride 105 mmol/L (98-107); Cholesterol 231 mg/dL (140-199); Estimated Glomerular Filt Rate > 60.0 mL/min (>60); Globulin 2.6 g/dL (1.7-4.1); Glucose 96 mg/dL (80-110); HDL Cholesterol 52 mg/dL (40-60); HEMOLYSIS < 15 (0-50); LDL Cholesterol Calculated 157 mg/dL (<100); Potassium 4.3 mmol/L (3.4-5.1); Sodium 138 mmol/L (137-145); Triglycerides 110 mg/dL (35-150)
== END ==
PROVIDERS: PCP Family Medicine; Visit Provider Physician Assistant
DX: G47.00 Insomnia, unspecified (principal); Z00.00 Encounter for general adult medical examination without abnormal findings; Z13.220 Encounter for screening for lipoid disorders
CPT/HCPCS: 80053; 80061; 85025

== ENCOUNTER → 2022-08-11 14:33 | Outpatient (CLI) | payer MEDICARE, OTHER, SELFPAY ==
[2022-08-11 19:34] LABS: Alanine Aminotransferase 26 IU/L (<35); Albumin 4.5 g/dL (3.5-5.0); Albumin Globulin Ratio 1.5 (1.0-2.8); Alkaline Phosphatase 65 U/L (38-126); Aspartate Aminotransferase 25 IU/L (14-36); Bilirubin Total 0.4 mg/dL (0.2-1.3); Blood Urea Nitrogen 18 mg/dL (7-17); Calcium 9.3 mg/dL (8.4-10.2); Carbon Dioxide 28 mmol/L (22-32); Chloride 101 mmol/L (98-107); Estimated Glomerular Filt Rate > 60 mL/min (>60); Globulin 3.1 g/dL (1.7-4.1); Glucose 90 mg/dL (80-110); HEMOLYSIS < 15 (0-50); Potassium 3.9 mmol/L (3.4-5.1); Sodium 139 mmol/L (137-145); Total Protein 7.6 g/dL (6.3-8.2)
== END ==
PROVIDERS: PCP Physician Assistant; Visit Provider Physician Assistant
DX: R74.8 Abnormal levels of other serum enzymes (principal)
CPT/HCPCS: 80053

== ENCOUNTER → 2023-03-16 10:42 | Outpatient (CLI) | payer MEDICARE, OTHER, SELFPAY ==
--- NOTE | 2023-03-16 10:55 | DI.DEXA.S_ITS ---
Bone Density Report Name: MILTON PRIDE Age: 67 Sex: Female Ethnicity: White Date of : 1955 Indication: postmenopausal; screening for osteoporosis; Referring Provider: CHAYA BENITEZ Study: Bone densitometry was performed. Exam Date: March 16, 2023 Accession number: [id number] Bone Density: Region BMD T-score Z-score Classification AP Spine(L1, L3, L4) 0.927 -1.1 0.8 Osteopenia Femoral Neck (Left) 0.743 -1.0 0.7 Normal Total Hip (Left) 0.826 -1.0 0.4 Normal Femoral Neck (Right) 0.781 -0.6 1.1 Normal Total Hip (Right) 0.875 -0.5 0.8 Normal Total Hip Mean 0.850 -0.8 0.6 Normal World Health Organization criteria for BMD impression classify patients as: Normal (T-score at or above -1.0), Osteopenia (T-score between -1.0 and -2.5), or Osteoporosis (T-score at or below -2.5). Impression: The patient has low bone mass, based on the Total Spine T-score. Discussion: BONE DENSITY IS LOW AT ONE OR MORE SKELETAL SITES. This patient's lowest T-score is low at one or more skeletal sites. It meets the World Health Organization's (WHO) criteria for ?low bone mass? (T-score between -1.0 and -2.5). The patient's 10-year risk of fracture as calculated by FRAX is less than the threshold where pharmacological therapy is recommended by the National Osteoporosis Foundation (NOF). However, all treatment decisions require clinical judgment and consideration of individual patient factors, including patient preferences, comorbidities, previous drug use, risk factors not captured in the FRAX model (e.g., frailty, falls, vitamin D deficiency, increased bone turnover, interval significant decline in bone density) and possible under or overestimation of fracture risk by FRAX. The patient should follow a healthful lifestyle (good nutrition with adequate calcium and vitamin D, and appropriate weight-bearing exercise). Follow-Up: Consider repeating this study in 2 to 3 years to reassess this patient's status, or sooner if there is some new clinical indication. Reported by: DANTE THOMPSON M.D. on 03/16/2023 11:04:00 AM.
== END ==
PROVIDERS: PCP Physician Assistant; Referring Provider Family Medicine; Visit Provider Family Medicine
DX: Z78.0 Asymptomatic menopausal state (principal); Z13.820 Encounter for screening for osteoporosis; M85.88 Other specified disorders of bone density and structure, other site
CPT/HCPCS: 77080

== ENCOUNTER → 2023-04-12 09:34 | Outpatient (CLI) | payer MEDICARE, OTHER, SELFPAY ==
[2023-04-12 20:08] LABS: Cholesterol 230 mg/dL (140-199); Glucose 99 mg/dL (80-110); HDL Cholesterol 53 mg/dL (40-60); LDL Cholesterol Calculated 161 mg/dL (<100); Triglycerides 81 mg/dL (35-150)
[2023-04-12 20:16] LABS: Alanine Aminotransferase 17 IU/L (<35); Albumin 4.3 g/dL (3.5-5.0); Albumin Globulin Ratio 1.6 (1.0-2.8); Alkaline Phosphatase 56 U/L (38-126); Aspartate Aminotransferase 23 IU/L (14-36); BUN Creatinine Ratio 32.8 (6-22); Bilirubin Total 0.4 mg/dL (0.2-1.3); Blood Urea Nitrogen 19 mg/dL (7-17); Calcium 9.2 mg/dL (8.4-10.2); Carbon Dioxide 26 mmol/L (22-32); Chloride 103 mmol/L (98-107); Estimated Glomerular Filt Rate > 60 mL/min (>60); Globulin 2.7 g/dL (1.7-4.1); Glucose 100 mg/dL (80-110); HEMOLYSIS < 15 (0-50); Potassium 4.4 mmol/L (3.4-5.1); Sodium 137 mmol/L (137-145)
[2023-04-12 20:55] LABS: Hep C Virus Ab w/Reflex Quant NEGATIVE s/c (NEGATIVE)
== END ==
PROVIDERS: PCP Physician Assistant; Visit Provider Physician Assistant
DX: Z13.1 Encounter for screening for diabetes mellitus (principal); R74.8 Abnormal levels of other serum enzymes; Z11.59 Encounter for screening for other viral diseases; Z13.220 Encounter for screening for lipoid disorders; Z13.820 Encounter for screening for osteoporosis; Z78.0 Asymptomatic menopausal state; E78.5 Hyperlipidemia, unspecified; M54.9 Dorsalgia, unspecified
CPT/HCPCS: 80053; 80061; 82947; 86803

== ENCOUNTER → 2023-08-03 08:40 | Outpatient (CLI) | payer MEDICARE, OTHER, SELFPAY ==
[2023-08-03 20:29] LABS: Cholesterol 234 mg/dL (140-199); HDL Cholesterol 50 mg/dL (40-60); LDL Cholesterol Calculated 155 mg/dL (<100); Triglycerides 144 mg/dL (35-150)
== END ==
PROVIDERS: PCP Family Medicine; Visit Provider Family Medicine
DX: E78.5 Hyperlipidemia, unspecified (principal); E78.2 Mixed hyperlipidemia; T63.441A Toxic effect of venom of bees, accidental (unintentional), initial encounter
CPT/HCPCS: 80061

== ENCOUNTER → 2023-12-15 11:05 | Outpatient (CLI) | payer MEDICARE, OTHER, SELFPAY ==
--- NOTE | 2023-12-15 11:15 | DI.MG.S_ITS ---
BILATERAL DIGITAL SCREENING MAMMOGRAM 3D/2D WITH CAD: 12/15/2023 CLINICAL: Routine screening. Family history of breast cancer. Comparison is made to exams dated: 12/04/2022 mammogram, 04/01/2021 mammogram, and 12/19/2018 mammogram - [facility]. There are scattered areas of fibroglandular density in both breasts (category b / 25%-50% glandular tissue). Current study was also evaluated with a Computer Aided Detection (CAD) system. No significant masses, calcifications, or other findings are seen in either breast. There has been no significant interval change. IMPRESSION: NEGATIVE There is no mammographic evidence of malignancy. A 1 year screening mammogram is recommended. Based on the Tyrer Cuzick model (a risk assessment model) the patient's lifetime risk is 10.9% and her 10 year risk is 6.1%. According to the ACR, ACS, and NCCN guidelines, an annual breast MRI exam along with mammogram is recommended if the patient's lifetime risk is 20% or greater. This exam was interpreted at Station ID: [id number]. NOTE: For mammograms, a report in lay terms will be sent to the patient. Approximately 15% of breast malignancies will not be visualized mammographically. In the management of a palpable breast mass, a negative mammogram must not discourage biopsy of a clinically suspicious lesion. Electronically Signed By: Maria De Jesus marie/anne:12/15/2023 12:06:26 letter sent: Normal Exam ACR BI-RADS Category 1: Negative [id number]
== END ==
PROVIDERS: PCP Family Medicine; Referring Provider Family Medicine; Visit Provider Family Medicine
DX: Z12.31 Encounter for screening mammogram for malignant neoplasm of breast (principal); Z80.3 Family history of malignant neoplasm of breast; R92.323 Mammographic fibroglandular density, bilateral breasts
CPT/HCPCS: 77063; 77067

== ENCOUNTER → 2025-02-06 13:43 | Outpatient (CLI) | payer MEDICARE, OTHER, SELFPAY ==
--- NOTE | 2025-02-06 13:44 | DI.MG.S_ITS ---
MM screening mammo BI: 02/06/2025. BI-RADS: 1 CLINICAL: 69-year old female for bilateral screening mammogram. Tyrer-Cuzick lifetime risk of 14.8%. Current reported family history of breast cancer: paternal grandmother, mother and sister. PRIOR EXAMS 12/15/2023. MAMMOGRAPHY TECHNIQUE: 2D and 3D (tomosynthesis) digital mammographic views obtained, with additional images as needed for full coverage. Current study was also evaluated with a Computer Aided Detection (CAD) system. DENSITY C. The breasts are heterogeneously dense, which may obscure small masses. MAMMOGRAPHY FINDINGS Bilateral: No suspicious mass, asymmetry, microcalcification, or other abnormality seen. IMPRESSION: * No evidence of malignancy. RECOMMENDATIONS Bilateral * Annual screening mammography. OVERALL ASSESSMENT CATEGORY BI-RADS-1: Negative. The [employer] recommends annual screening mammography beginning at age 40 for women with average risk of breast cancer. ELECTRONICALLY SIGNED: Theo Biswas M.D. on 02/06/2025 at 02:44:27 PM PT Interpreting Station ID: [id number]
== END ==
PROVIDERS: PCP Family Medicine; Referring Provider Family Medicine; Visit Provider Family Medicine
DX: Z12.31 Encounter for screening mammogram for malignant neoplasm of breast (principal); R92.333 Mammographic heterogeneous density, bilateral breasts; Z80.3 Family history of malignant neoplasm of breast
CPT/HCPCS: 77063; 77067